=== PATIENT | male | born 1955 | race African-American/Black ===

== ENCOUNTER 2018-09-29 09:38 | Emergency (ER) | payer OTHER ==
[~2018-09-29] VITALS: Ht 182.9 cm; Wt 111.1 kg
[2018-09-29 09:45] VITALS: Ht 182.9 cm; Wt 111.1 kg
[2018-09-29] MEDS ORDERED: TRIAMTERENE/HCT1 TA2 PO (09:59)
[2018-09-29] MEDS ORDERED: NOR10 PO (09:59)
[2018-09-29] MEDS ORDERED: XTANDI40 M1 PO (10:00)
[2018-09-29] MEDS ORDERED: AMITRIPTYLINE100 MG PO (10:00)
[2018-09-29] MEDS ORDERED: TOPROL XL25 MG PO (10:01)
[2018-09-29] MEDS ORDERED: ACETAMINOPHEN A1 TAB PO (10:01)
[2018-09-29] MEDS ORDERED: COLACE100 MG PO (10:01)
[2018-09-29] MEDS ORDERED: APAP500 MG PO (10:02)
[2018-09-29] MEDS ORDERED: FERROUS SULFAT325 M2 PO (10:02)
[2018-09-29] MEDS ORDERED: ATORVASTATIN CA40 M1 PO (10:03)
[2018-09-29] MEDS ORDERED: PANTOPRAZOLE SO40 M1 PO (10:03)
[2018-09-29] MEDS ORDERED: ZOFRAN8 MG PO (10:04)
[2018-09-29 10:47] LABS: BASOPHIL % 0.1 % (0-2); PLATELET COUNT 337 x10^3mcL (130-400)
[2018-09-29 10:50] LABS: CALCIUM 8.8 mg/dL (8.5-10.1); CARBON DIOXIDE 30.5 mmol/L (21-32); CHLORIDE SERUM 104 mmol/L (98-107); GFR1 > 60 mL/min; GLUCOSE SERUM 116 mg/dL (74-106); POTASSIUM SERUM 4.2 mmol/L (3.5-5.1); SODIUM SERUM 140 mmol/L (136-145)
[2018-09-29 10:51] LABS: RED CELL DISTRIBUTION WIDTH 17.7 % (11.5-14.5)
[2018-09-29 10:56] LABS: ALBUMIN 3.2 g/dL (3.4-5.0); ALKALINE PHOSPHATASE 191 U/L (46-116); ALT/SGPT 18 U/L (16-63); AST/SGOT 21 U/L (15-37); BILIRUBIN TOTAL 0.4 mg/dL (0.20-1.00); CHOLESTEROL 122 mg/dL (<200); HDL CHOLESTEROL 36 mg/dL (40-60)
[2018-09-29 19:52] VITALS: BP 153/80
== END 2018-09-29 20:05 | disposition home or self-care (01) ==
LOC: ED 09:38
PROVIDERS: Emergency Medicine
DX: R55 Syncope and collapse (principal); R42 Dizziness and giddiness; D64.9 Anemia, unspecified; Z85.46 Personal history of malignant neoplasm of prostate; Z85.05 Personal history of malignant neoplasm of liver; Z98.890 Other specified postprocedural states
CPT/HCPCS: J7030; J7040; P9016; Q0092